=== PATIENT | male | born 1950 ===

== ENCOUNTER 2018-03-28 23:54 | Emergency (ER) | payer SELFPAY ==
[2018-03-29] MEDS ORDERED: DiphenhydrAMINE 50 mg/ml Inj IVP STA (00:12)
--- NOTE | 2018-03-29 00:12 | C.PDOC ---
History Of Present Illness 67 year old male presents to the ED c/o diffuse urticarial rash that started last week. Patient states his symptoms have been intermittent, however since earlier today. Patient able to speak in complete sentences. Patient denies fever, chill, nausea, vomit, SOB, wheezing, lip swelling, tongue swelling, weakness, numbness. Time Seen by Provider: 03/29/18 00:12 Chief Complaint (Nursing): Abnormal Skin Integrity History Per: Patient History/Exam Limitations: no limitations Onset/Duration Of Symptoms: Days Current Symptoms Are (Timing): Still Present Quality Of Symptoms: Itching Severity: Mild Recent travel outside of the [place]: No Additional History Per: Patient Past Medical History Reviewed: Historical Data, Nursing Documentation, Vital Signs Vital Signs: Last Vital Signs Temp 98.1 F 03/29/18 00:00 Pulse 79 03/29/18 00:00 Resp 14 03/29/18 00:00 BP 136/87 03/29/18 00:00 Pulse Ox 98 03/29/18 00:00 - Medical History PMH: No Chronic Diseases Surgical History: No Surg Hx Family History: States: Unknown Family Hx - Social History Hx Alcohol Use: Yes Hx Substance Use: No - Immunization History Hx Tetanus Toxoid Vaccination: No Hx Influenza Vaccination: No Hx Pneumococcal Vaccination: No Review Of Systems Constitutional: Negative for: Fever, Chills Cardiovascular: Negative for: Chest Pain Respiratory: Negative for: Cough, Shortness of Breath, Wheezing Gastrointestinal: Negative for: Nausea, Vomiting, Abdominal Pain Skin: Positive for: Rash Neurological: Negative for: Weakness, Numbness, Headache, Dizziness Physical Exam - Physical Exam Appears: Non-toxic, No Acute Distress Skin: Warm, Dry, Rash (diffuse urticarial rash) Head: Normacephalic Eye(s): bilateral: Normal Inspection Ear(s): Bilateral: Normal Nose: No Discharge Oral Mucosa: Moist Tongue: No Swelling Lips: No Swelling Throat: No Erythema, No Exudate Neck: Supple Chest: Symmetrical Cardiovascular: Rhythm Regular Respiratory: No Rales, No Rhonchi, No Wheezing Extremity: Bilateral: Atraumatic, Normal Color And Temperature, Normal ROM Neurological/Psych: Oriented x3, Normal Speech, Normal Cognition Gait: Steady ED Course And Treatment O2 Sat by Pulse Oximetry: 98 (ON RA) Pulse Ox Interpretation: Normal Progress Note: Plan: - Benadryl 25 mg IVP. - Pepcid 20 mg IVP. - Solumedrol 125 mg IVP. - IV fluids Reevaluation Time: 04:19 Reassessment Condition: Improved Disposition Counseled Patient/Family Regarding: Studies Performed, Diagnosis, Need For Followup, Rx Given - Disposition Referrals: [facility] [Outside] Disposition: HOME/ ROUTINE Disposition Time: 00:12 Condition: FAIR Additional Instructions: Por favor regrese si los sntomas recurren. Tambin use benadryl, pepcid y claritin Prescriptions: Prednisone [Deltasone] 20 mg PO DAILY #5 tablet Instructions: Viviane (DC) Forms: [employer] (Cypriot) Print Language: BERMUDIAN - Clinical Impression Clinical Impression: Allergic reaction - Scribe Statement The provider has reviewed the documentation as recorded by the Scribe Nadeem House All medical record entries made by the Scribe were at my direction and personally dictated by me. I have reviewed the chart and agree that the record accurately reflects my personal performance of the history, physical exam, medical decision making, and the department course for this patient. I have also personally directed, reviewed, and agree with the discharge instructions and disposition.
[2018-03-29] MEDS ORDERED: Sodium Chloride 0.9% 1,000 ML IV ONE (00:13)
[2018-03-29] MEDS ORDERED: DiphenhydrAMINE 50 mg/ml Inj ONE (00:25)
[2018-03-29] MEDS ORDERED: Sodium Chloride 0.9% 1,000 ML ONE (00:25)
[2018-03-29 01:14] VITALS: RESP 16
[2018-03-29 03:19] VITALS: O2SAT 98
[2018-03-29 05:27] VITALS: BP 117/81; PULSE 82; TEMP 97.6
== END 2018-03-29 05:42 | disposition home or self-care (01) ==
LOC: C.ER 23:54
DX: T78.49XA Other allergy, initial encounter (principal); X58.XXXA Exposure to other specified factors, initial encounter
CPT/HCPCS: 96361; 96374; 96375; 99285; J1200; J2930; J7030